=== PATIENT | male | born 1970 | race Caucasian/White ===

== ENCOUNTER 2017-07-09 08:20 | Emergency (ER) | payer OTHER ==
[~2017-07-09] VITALS: Ht 188 cm; Wt 94.5 kg
[2017-07-09 08:26] VITALS: BP 182/110; PULSE 58; RESP 16; TEMP 97.5; O2SAT 99
[2017-07-09] MEDS ORDERED: METF1000 PO (08:38)
[2017-07-09] MEDS ORDERED: LISI-515 PO (08:39)
[2017-07-09] MEDS ORDERED: SODIUM CHLOR 0.9% 1000 ML INJ 1,000 ML IV ONE (08:47)
--- NOTE | 2017-07-09 08:52 | PD ---
HPI Chief Complaint: Abdominal Pain Time Seen by Provider: 08:47 Travel History International Travel<30 days: No Contact w/Intl Traveler<30days: No Traveled to known affect area: No History of Present Illness HPI Patient presents with complaints of right lower quadrant pain. Onset on Monday. Reports evaluation at urgent care with a unspecified CT. States results were benign. Describes the pain as colicky. Denies any hematuria. No history of kidney stones. Positive nausea without vomiting. Reports normal stools. Denies any overexertion or heavy lifting PFSH Past Medical History Hx Anticoagulant Therapy: No Cardiovascular Problems: Yes (HTN) Diabetes: Yes Patient Takes Glucophage: No Diminished Hearing: No Tetanus Vaccination: < 5 Years Influenza Vaccination: No Social History Alcohol Use: No Tobacco Use: No Substance Use: No Allergies-Medications (Allergen,Severity, Reaction): Coded Allergies: No Known Allergies (Unverified , 07/09/17) Reported Meds & Prescriptions Reported Meds & Active Scripts Active Reported Lisinopril 20 Mg Tab Unknown Dose PO DAILY Metformin (Metformin HCl) 1,000 Mg Tab Unknown Dose PO BIDPC Review of Systems General / Constitutional: No: Fever Eyes: No: Visual changes HENT: No: Headaches Cardiovascular: No: Chest Pain or Discomfort Respiratory: No: Shortness of Breath Gastrointestinal: Positive: Nausea, Abdominal Pain Genitourinary: No: Dysuria Musculoskeletal: No: Pain Skin: No Rash Neurologic: No: Weakness Psychiatric: No: Depression Endocrine: No: Polydipsia Hematologic/Lymphatic: No: Easy Bruising Physical Exam Narrative GENERAL: Well-nourished, well-developed patient. SKIN: Focused skin assessment warm/dry. HEAD: Normocephalic. EYES: No scleral icterus. No injection or drainage. NECK: Supple, trachea midline. No JVD or lymphadenopathy. CARDIOVASCULAR: Regular rate and rhythm without murmurs, gallops, or rubs. RESPIRATORY: Breath sounds equal bilaterally. No accessory muscle use. GASTROINTESTINAL: Abdomen soft, severely tender right lower quadrant, nondistended. MUSCULOSKELETAL: No cyanosis, or edema. BACK: Nontender without obvious deformity. No CVA tenderness. Data Data Last Documented VS Vital Signs Date Time Temp Pulse Resp B/P (MAP) Pulse Ox O2 Delivery O2 Flow Rate FiO2 07/09/17 11:25 69 16 140/90 (107) 98 Room Air 07/09/17 08:26 97.5 Orders Orders Urinalysis - C+S If Indicated (07/09/17 08:25) Ecg Monitoring (07/09/17 08:47) Iv Access Insert/Monitor (07/09/17 08:47) Ketorolac Inj (Toradol Inj) (07/09/17 09:00) Ondansetron Inj (Zofran Inj) (07/09/17 09:00) Sodium Chloride 0.9% Flush (Ns Flush) (07/09/17 09:00) Sodium Chlor 0.9% 1000 Ml Inj (Ns 1000 M (07/09/17 08:47) Complete Blood Count With Diff (07/09/17 10:06) Comprehensive Metabolic Panel (07/09/17 10:06) Lipase (07/09/17 10:06) Lactic Acid (07/09/17 10:06) Ct Abd/Pel W Iv Contrast(Rout) (07/09/17 10:06) Oximetry (07/09/17 10:06) NPO (07/09/17 10:06) Iohexol 350 Inj (Omnipaque 350 Inj) (07/09/17 10:39) Labs Laboratory Tests Test 07/09/17 09:50 07/09/17 10:12 Urine Collection Type CLEAN CATCH Urine Color YELLOW Urine Turbidity CLEAR Urine pH 6.0 Urine Specific Redig 1.020 Urine Protein NEG mg/dL Urine Glucose (UA) NEG mg/dL Urine Ketones NEG mg/dL Urine Occult Blood NEG Urine Nitrite NEG Urine Bilirubin NEG Urine Leukocyte Esterase NEG Urine RBC 0-3 /hpf Microscopic Urinalysis Comment CULT NOT INDICATED White Blood Count 4.6 TH/MM3 Red Blood Count 5.07 MIL/MM3 Hemoglobin 13.2 GM/DL Hematocrit 40.1 % Mean Corpuscular Volume 79.0 FL Mean Corpuscular Hemoglobin 26.1 PG Mean Corpuscular Hemoglobin Concent 33.0 % Red Cell Distribution Width 13.7 % Platelet Count 233 TH/MM3 Mean Platelet Volume 7.3 FL Neutrophils (%) (Auto) 50.3 % Lymphocytes (%) (Auto) 35.5 % Monocytes (%) (Auto) 11.3 % Eosinophils (%) (Auto) 1.6 % Basophils (%) (Auto) 1.3 % Neutrophils # (Auto) 2.3 TH/MM3 Lymphocytes # (Auto) 1.6 TH/MM3 Monocytes # (Auto) 0.5 TH/MM3 Eosinophils # (Auto) 0.1 TH/MM3 Basophils # (Auto) 0.1 TH/MM3 CBC Comment DIFF FINAL Differential Comment Blood Urea Nitrogen 11 MG/DL Creatinine 0.88 MG/DL Random Glucose 111 MG/DL Total Protein 7.3 GM/DL Albumin 4.0 GM/DL Calcium Level 8.8 MG/DL Alkaline Phosphatase 70 U/L Aspartate Amino Transf (AST/SGOT) 18 U/L Alanine Aminotransferase (ALT/SGPT) 24 U/L Total Bilirubin 0.4 MG/DL Sodium Level 139 MEQ/L Potassium Level 3.9 MEQ/L Chloride Level 105 MEQ/L Carbon Dioxide Level 23.7 MEQ/L Anion Gap 10 MEQ/L Estimat Glomerular Filtration Rate 94 ML/MIN Lactic Acid Level 2.2 mmol/L Lipase 91 U/L MDM Medical Decision Making Medical Screen Exam Complete: Yes Emergency Medical Condition: Yes Differential Diagnosis Appendicitis, nephrolithiasis, UTI, pyelonephritis Narrative Course Assessment and plan discussed with patient at bedside. Attempts to obtain films. CT the abdomen and pelvis without IV contrast was performed Monday without evidence of mass or hydronephrosis inguinal region was unremarkable without evidence of adenopathy. I think with the negative urinalysis a redirection of evaluation is appropriate. Last 72 hours Impressions Abdomen/Pelvis CT 07/09/17 1006 Signed Impressions: Service Date/Time: Monday, July 09, 2017 10:27 - CONCLUSION: No acute abnormality. Neo Mckeon MD Lab work within normal limits with the exception of a mildly elevated lactic acid however CT the abdomen and pelvis did not reveal any partial small bowel structurally or ischemic bowel. I think at this point we'll prophylactically treat for a colitis of some sort and have the patient follow-up with primary care provider. Diagnosis Primary Impression: Right lower quadrant abdominal pain Patient Instructions: General Instructions Additional Instructions: Encouraged rest and fluids. Encouraged a daily liquid fiber supplement. Follow -up with PCP. Return to emergency room if any onset of new symptoms. Med/Other Pt SpecificInfo: Prescription(s) given Scripts Hydrocodone-Acetaminophen (Hydrocodone-Acetaminophen) 5-325 mg Tab 1 TAB PO Q6H Y for PAIN for 7 Days, #15 TAB 0 Refills Prov: Edinson Escobar MD 07/09/17 Metronidazole (Flagyl) 500 Mg Tab 500 MG PO BID for Infection, #7 TAB 0 Refills Prov: Edinson Escobar MD 07/09/17 Ciprofloxacin (Cipro) 500 Mg Tab 500 MG PO BID for Infection for 7 Days, #14 TAB 0 Refills Prov: Edinson Escobar MD 07/09/17 Disposition: 01 DISCHARGE HOME Condition: Good Edinson Escobar MD Jul 09, 2017 08:51
[2017-07-09] MEDS ORDERED: ONDANSETRON HCL 4 MG/2 ML VIAL IV PUSH ONE (09:00)
[2017-07-09] MEDS ORDERED: KETOROLAC TROMETHAMINE 30 MG/ML (IVP) VIAL IV PUSH ONE (09:00)
[2017-07-09] MEDS ORDERED: SODIUM CHLORIDE 0.9% FLUSH 10 ML FLUSH IVF PRN (09:00)
[2017-07-09 09:19] VITALS: BP 142/100; PULSE 100; RESP 16; O2SAT 99
[2017-07-09 09:56] LABS: BLOOD, URINE NEG (NEG); GLUCOSE,URINE NEG (NEG); KETONE, URINE NEG (NEG); NITRITE,URINE NEG (NEG)
[2017-07-09 09:58] LABS: METHOD OF COLLECTION CLEAN CATCH; URINE COLOR YELLOW (YELLW/STRAW)
[2017-07-09 10:00] LABS: COMMENT (UR) CULT NOT INDICATED; CULTURE IF INDICATED CULT NOT INDICATED; RBC, URINE 0-3 /hpf (0-3)
[2017-07-09 10:29] LABS: AUTOMATED NEUTROPHIL # 2.3 TH/MM3 (1.8-7.7); BASOPHIL # 0.1 TH/MM3 (0-0.2); BASOPHIL % 1.3 % (0.0-2.0); EOSINOPHIL # 0.1 TH/MM3 (0-0.4); EOSINOPHIL % 1.6 % (0.0-4.0); HEMATOCRIT 40.1 % (39.0-51.0); HEMO FLAGS DIFF FINAL; LYMPH % 35.5 % (9.0-44.0); LYMPHOCYTE # 1.6 TH/MM3 (1.0-4.8); MEAN CORPUSCULAR HEMOGLOBIN 26.1 PG (27.0-34.0); MONO % 11.3 % (0.0-8.0); NEUT % 50.3 % (16.0-70.0); PLATELET COUNT 233 TH/MM3 (150-450); RED BLOOD COUNT 5.07 MIL/MM3 (4.50-5.90); RED CELL DISTRIBUTION WIDTH 13.7 % (11.6-17.2); WHITE BLOOD COUNT 4.6 TH/MM3 (4.0-11.0)
[2017-07-09 10:37] LABS: CHLORIDE 105 MEQ/L (98-107); POTASSIUM 3.9 MEQ/L (3.5-5.1); SODIUM (NA) 139 MEQ/L (136-145)
[2017-07-09] MEDS ORDERED: IOHEXOL 350 MG/ML 10 ML VIAL (for RAD DIAG) IVCONTRAST ONE (10:39)
[2017-07-09 10:41] LABS: ANION GAP 10 MEQ/L (5-15); BICARBONATE 23.7 MEQ/L (21.0-32.0); BLOOD UREA NITROGEN 11 MG/DL (7-18)
[2017-07-09 10:43] LABS: ALT (GPT) 24 U/L (12-78); AST (GOT) 18 U/L (15-37)
[2017-07-09 10:44] LABS: GLOMERULAR FILTRATION RATE 94 ML/MIN (>89)
[2017-07-09 10:45] LABS: TOTAL BILIRUBIN ADULT 0.4 MG/DL (0.2-1.0)
[2017-07-09 10:46] LABS: ALKALINE PHOSPHATASE 70 U/L (45-117)
--- NOTE | 2017-07-09 10:47 | RADRPT ---
EXAM DATE/TIME: 07/09/2017 10:27 [facility] COMPARISON: No previous studies available for comparison. INDICATIONS : Right lower quadrant pain, worsening since prior CT scan done two days ago. IV CONTRAST: 90 cc Omnipaque 350 (iohexol) IV ORAL CONTRAST: No oral contrast ingested. RADIATION DOSE: 17.28 CTDIvol (mGy) MEDICAL HISTORY : Hypertension. Diabetes. SURGICAL HISTORY : None. ENCOUNTER: Initial ACUITY: 2 days PAIN SCALE: 8/10 LOCATION: Right lower quadrant TECHNIQUE: Volumetric scanning of the abdomen and pelvis was performed. Using automated exposure control and ad justment of the mA and/or kV according to patient size, radiation dose was kept as low as reasonably achievable to obtain optimal diagnostic quality images. DICOM format image data is available electro nically for review and comparison. FINDINGS: LOWER LUNGS: The visualized lower lungs are clear. LIVER: Homogeneous density without lesion. There is no dilation of the biliary tree. No calcified gallston es. SPLEEN: Normal size without lesion. PANCREAS: Within normal limits. KIDNEYS: Normal in size and shape. There is no mass, stone or hydronephrosis. ADRENAL GLANDS: Within normal limits. VASCULAR: There is no aortic aneurysm. BOWEL/MESENTERY: The stomach, small bowel, and colon demonstrate no acute abnormality. There is no free intraperitone al air or fluid. Appendix well visualized, normal. ABDOMINAL WALL: Within normal limits. RETROPERITONEUM: There is no lymphadenopathy. BLADDER: No wall thickening or mass. REPRODUCTIVE: Within normal limits. INGUINAL: There is no lymphadenopathy or hernia. MUSCULOSKELETAL: Within normal limits for patient age. CONCLUSION: No acute abnormality. Neo Mckeon MD on July 09, 2017 at 10:44 Board Certified Radiologist. This report was verified electronically.
[2017-07-09 10:51] VITALS: O2SAT 100
[2017-07-09 11:25] VITALS: BP 140/90; PULSE 69; RESP 16; O2SAT 98
[2017-07-09] MEDS ORDERED: METR-1 PO (11:50)
[2017-07-09] MEDS ORDERED: CIPR-9 PO (11:50)
[2017-07-09] MEDS ORDERED: HYDR-3516 PO (11:50)
== END 2017-07-09 12:02 | disposition home or self-care (01) ==
LOC: PHED 08:20
DX: R10.31 Right lower quadrant pain (principal); I10 Essential (primary) hypertension; E11.9 Type 2 diabetes mellitus without complications
CPT/HCPCS: 74177; 80053; 81001; 83605; 83690; 85025; 96361; 96374; 96375; 99285; J1885; J2405; J7030; Q9967